=== PATIENT | male | born 1975 ===

== ENCOUNTER 2020-08-17 07:20 | Outpatient (REF) | payer OTHER, SELFPAY ==
[2020-08-17 08:27] LABS: Alanine Aminotransferase 47 U/L (0-40); Albumin Level 4.8 g/dL (3.5-5.0); Alkaline Phosphatase 63 U/L (39-117); Anion Gap 11 (12-20); Aspartate Amino Transferase 42 U/L (5-37); Bilirubin Total 0.6 mg/dL (0.0-1.0); Blood Urea Nitrogen 14 mg/dL (9-16); Calcium 9.2 mg/dL (8.4-10.2); Carbon Dioxide 27 mmol/L (22-29); Chloride 102 mmol/L (96-108); Cholesterol 149 mg/dL; Estimated Glomerular Filt Rate > 60; Glucose Random 95 mg/dL (60-115); HDL Cholesterol 38 mg/dL; LDL Cholesterol Calculated 77 mg/dl; Potassium 4.3 mmol/l (3.3-5.1); Sodium 136 mmol/L (135-145); Total Protein 7.5 g/dL (6.5-8.0); Triglycerides 174 mg/dL
== END 2020-08-17 07:21 | disposition home or self-care (01) ==
LOC: HO.LAB 07:20
PROVIDERS: PCP Internal Medicine; Visit Provider Internal Medicine
DX: Z00.00 Encounter for general adult medical examination without abnormal findings (principal); E78.00 Pure hypercholesterolemia, unspecified; I10 Essential (primary) hypertension
CPT/HCPCS: 80053; 80061

== ENCOUNTER 2021-05-16 07:50 | Outpatient (REF) | payer OTHER, SELFPAY ==
[2021-05-16 08:12] LABS: MANUAL DIFF FLAG NO
[2021-05-16 08:18] LABS: Basophils Percent Auto 0.4 % (0-2); Eosinophils Absolute Auto 0.1 X10*3/uL (0.0-0.4); Eosinophils Percent Auto 1.3 % (0-4); Hematocrit 39.9 % (42-52); Hemoglobin 13.9 g/dl (14.0-18.0); Imm Gran Abs Auto 0.02 X10*3/uL (0.00-0.03); Imm Gran Pct Auto 0.4 % (0.0-0.4); Lymphocytes Absolute Auto 2.2 X10*3/uL (1.2-4.9); Lymphocytes Percent Auto 40.3 % (20-40); Mean Corpuscular HGB Conc 34.8 g/dl (31.0-36.0); Mean Corpuscular Hemoglobin 31.2 pg (27.0-33.0); Mean Corpuscular Volume 89.7 fL (80-98); Mean Platelet Volume 9.7 fL (9.4-12.4); Monocytes Absolute Auto 0.5 X10*3/uL (0.1-1.2); Monocytes Percent Auto 8.3 % (2-11); Neutrophils Absolute Auto 2.7 X10*3/uL (2.0-8.3); Neutrophils Percent Auto 49.3 % (45-73); Platelet Count 247 X10*3/uL (160-400); Red Blood Count 4.45 X10*6/uL (4.60-5.80); Red Cell Distribution Width 12.3 % (11.0-16.0); White Blood Count 5.4 X10*3/uL (4.8-10.8)
[2021-05-16 08:37] LABS: Alanine Aminotransferase 37 U/L (0-40); Albumin Level 4.7 g/dL (3.5-5.0); Alkaline Phosphatase 58 U/L (39-117); Anion Gap 12 (12-20); Aspartate Amino Transferase 32 U/L (5-37); Bilirubin Total 0.6 mg/dL (0.0-1.0); Blood Urea Nitrogen 21 mg/dL (9-16); Calcium 9.6 mg/dL (8.4-10.2); Carbon Dioxide 26 mmol/L (22-29); Chloride 106 mmol/L (96-108); Cholesterol 146 mg/dL; Estimated Glomerular Filt Rate > 60; Glucose Random 104 mg/dL (60-115); HDL Cholesterol 35 mg/dL; LDL Cholesterol Calculated 93 mg/dl; Potassium 3.9 mmol/L (3.3-5.1); Sodium 140 mmol/L (135-145); Total Protein 7.4 g/dL (6.5-8.0); Triglycerides 92 mg/dL
== END 2021-05-16 07:51 | disposition home or self-care (01) ==
LOC: HO.LAB 07:50
PROVIDERS: PCP Internal Medicine; Visit Provider Internal Medicine
DX: E78.2 Mixed hyperlipidemia (principal); I10 Essential (primary) hypertension
CPT/HCPCS: 36415; 80053; 80061; 85025

== ENCOUNTER 2021-12-01 07:07 | Outpatient (REF) | payer OTHER, SELFPAY ==
[2021-12-01 08:26] LABS: Alanine Aminotransferase 41 U/L (0-40); Albumin Level 4.8 g/dL (3.5-5.0); Alkaline Phosphatase 57 U/L (39-117); Anion Gap 10 (12-20); Aspartate Amino Transferase 30 U/L (5-37); Bilirubin Total 0.7 mg/dL (0.0-1.0); Blood Urea Nitrogen 17 mg/dL (9-16); Calcium 10.3 mg/dL (8.4-10.2); Carbon Dioxide 32 mmol/L (22-29); Chloride 104 mmol/L (96-108); Estimated Glomerular Filt Rate > 60; Glucose Random 103 mg/dL (60-115); Potassium 4.6 mmol/L (3.3-5.1); Sodium 141 mmol/L (135-145); Total Protein 7.6 g/dL (6.5-8.0)
== END 2021-12-01 07:08 | disposition home or self-care (01) ==
LOC: HO.LAB 07:07
PROVIDERS: PCP Internal Medicine; Visit Provider Internal Medicine
DX: Z00.00 Encounter for general adult medical examination without abnormal findings (principal); E78.2 Mixed hyperlipidemia; I10 Essential (primary) hypertension
CPT/HCPCS: 36415; 80053

== ENCOUNTER 2022-05-22 07:15 | Outpatient (REF) | payer OTHER, SELFPAY ==
[2022-05-22 07:29] LABS: MANUAL DIFF FLAG NO
[2022-05-22 07:36] LABS: Basophils Percent Auto 0.3 % (0-2); Eosinophils Absolute Auto 0.1 X10*3/uL (0.0-0.4); Eosinophils Percent Auto 1.1 % (0-4); Hematocrit 39.8 % (42.0-52.0); Hemoglobin 13.8 g/dl (14.0-18.0); Imm Gran Abs Auto 0.01 X10*3/uL (0.00-0.03); Imm Gran Pct Auto 0.2 % (0.0-0.4); Lymphocytes Absolute Auto 2.2 X10*3/uL (1.2-4.9); Lymphocytes Percent Auto 32.6 % (20-40); Mean Corpuscular HGB Conc 34.7 g/dl (31.0-36.0); Mean Corpuscular Hemoglobin 31.1 pg (27.0-33.0); Mean Corpuscular Volume 89.6 fL (80.0-98.0); Mean Platelet Volume 9.6 fL (9.4-12.4); Monocytes Absolute Auto 0.6 X10*3/uL (0.1-1.2); Monocytes Percent Auto 8.3 % (2-11); Neutrophils Absolute Auto 3.8 x10*3/uL (2.0-8.3); Neutrophils Percent Auto 57.5 % (45-73); Platelet Count 241 X10*3/uL (160-400); Red Blood Count 4.44 X10*6/uL (4.60-5.80); Red Cell Distribution Width 12.5 % (11.0-16.0); White Blood Count 6.6 X10*3/uL (4.8-10.8)
[2022-05-22 07:56] LABS: Alanine Aminotransferase 27 U/L (0-40); Albumin Level 4.7 g/dL (3.5-5.0); Alkaline Phosphatase 54 U/L (39-117); Anion Gap 14 (12-20); Aspartate Amino Transferase 33 U/L (5-37); Bilirubin Total 0.8 mg/dL (0.0-1.0); Blood Urea Nitrogen 16 mg/dL (9-16); Calcium 9.4 mg/dL (8.4-10.2); Carbon Dioxide 26 mmol/L (22-29); Chloride 105 mmol/L (96-108); Cholesterol 157 mg/dL; Estimated Glomerular Filt Rate > 60; Glucose Random 98 mg/dL (60-115); HDL Cholesterol 40 mg/dL; LDL Cholesterol Calculated 96 mg/dl; Potassium 3.7 mmol/L (3.3-5.1); Sodium 141 mmol/L (135-145); Total Protein 7.4 g/dL (6.5-8.0); Triglycerides 105 mg/dL
[2022-05-22 08:11] LABS: Vitamin D 25-OH Total 44.9 ng/mL (>30)
[2022-05-23 11:52] LABS: Calcium (PTHI) 9.7 mg/dL (8.6-10.3); PTHI 50 pg/mL (16-77)
== END 2022-05-22 07:16 | disposition home or self-care (01) ==
LOC: HO.LAB 07:15
PROVIDERS: PCP Internal Medicine; Visit Provider Internal Medicine
DX: E78.00 Pure hypercholesterolemia, unspecified (principal); E83.52 Hypercalcemia; I10 Essential (primary) hypertension; R74.01 Elevation of levels of liver transaminase levels
CPT/HCPCS: 36415; 80053; 80061; 82306; 83970; 85025

== ENCOUNTER 2022-10-16 09:26 | Day surgery (SDC) | payer OTHER, SELFPAY ==
--- NOTE | 2022-10-12 12:04 | P.CONAN_ITS ---
Documented by User: Zuleika Ward NP 10/12/22 12:05 HPI - Anesthesia Eval Consult details Narrative: 47yo M for Colonoscopy [facility] Past Medical History Medical History (Updated 10/12/22 @ 11:57 by Christina Ivan RN) Elevated cholesterol HTN (hypertension) Nephrolithiasis S/P extracorporeal shock wave therapy Social History Social History Patient Tobacco Use Status: Never used Tobacco Second Hand Smoke Exposure: No Use of substances other than those prescribed or required for medical reasons: No Are you DNR?: No Advance Directives: No Advance Directives Information Provided: Yes Advance Directives on File: No Meds Allergies Allergy/AdvReac Type Severity Reaction Status Date / Time No Known Allergies Allergy Unverified 07/07/20 16:59 [No Known Allergies*] Home Medications Medication Instructions Recorded Confirmed Last Taken Type amlodipine 10 mg tablet 1 tab PO DAILY 10/12/22 10/12/22 10/16/22 History atorvastatin 20 mg tablet 1 tab PO DAILY 10/12/22 10/12/22 Unknown History lisinopril 20 1 tab PO DAILY 10/12/22 10/12/22 Unknown History mg-hydrochlorothiazide 25 mg tablet Exam Exam Date and Time: October 12, 2022 1204 Pertinent Lab Results Pertinent Lab Results: Laboratory Tests 05/22/22 05/22/22 07:27 07:27 WBC 6.6 Hgb 13.8 L Hct 39.8 L Plt Count 241 Sodium 141 Potassium 3.7 Chloride 105 Carbon Dioxide 26 BUN 16 Creatinine 1.08 Assessment and Plan Assessment Anesthesia Assessment: Chart Reviewed Documented by User: Cheikh Benedict MD 10/16/22 10:42 [facility] Past Medical History Medical History (Updated 10/12/22 @ 11:57 by Christina Ivan RN) Elevated cholesterol HTN (hypertension) Nephrolithiasis S/P extracorporeal shock wave therapy Social History Social History Patient Tobacco Use Status: Never used Tobacco Second Hand Smoke Exposure: No Use of substances other than those prescribed or required for medical reasons: No Are you DNR?: No Advance Directives: No Advance Directives Information Provided: Yes Advance Directives on File: No Meds Allergies Allergy/AdvReac Type Severity Reaction Status Date / Time No Known Allergies Allergy Unverified 07/07/20 16:59 [No Known Allergies*] Home Medications Medication Instructions Recorded Confirmed Last Taken Type amlodipine 10 mg tablet 1 tab PO DAILY 10/12/22 10/12/22 10/16/22 History atorvastatin 20 mg tablet 1 tab PO DAILY 10/12/22 10/12/22 Unknown History lisinopril 20 1 tab PO DAILY 10/12/22 10/12/22 Unknown History mg-hydrochlorothiazide 25 mg tablet Exam Airway Mallampati Class: III Loose/Missing/Broken Teeth: Yes Documented by User: Nickolas Posey MD 10/16/22 15:54 [facility] Past Medical History Medical History (Updated 10/12/22 @ 11:57 by Christina Ivan RN) Elevated cholesterol HTN (hypertension) Nephrolithiasis S/P extracorporeal shock wave therapy Family History Family history of problems with anesthesia: No Surgical History History of Problems with Anesthesia: No Social History Social History Patient Tobacco Use Status: Never used Tobacco Second Hand Smoke Exposure: No Use of substances other than those prescribed or required for medical reasons: No Are you DNR?: No Advance Directives: No Advance Directives Information Provided: Yes Advance Directives on File: No Meds Allergies Allergy/AdvReac Type Severity Reaction Status Date / Time No Known Allergies Allergy Unverified 07/07/20 16:59 [No Known Allergies*] Home Medications Medication Instructions Recorded Confirmed Last Taken Type amlodipine 10 mg tablet 1 tab PO DAILY 10/12/22 10/12/22 10/16/22 History atorvastatin 20 mg tablet 1 tab PO DAILY 10/12/22 10/12/22 Unknown History lisinopril 20 1 tab PO DAILY 10/12/22 10/12/22 Unknown History mg-hydrochlorothiazide 25 mg tablet Exam Airway TM Dist: >3cm Neck ROM: Full Heart: S1,S2 Lungs: b/l breath sounds Assessment and Plan Assessment Anesthesia Assessment: Anesthesia Plan Discussed Final Anesthetic Review Family History of Problems with Anesthesia: No History of Problems with Anesthesia: No NPO: Yes ASA Class: II Final Preanesthetic Review: Meds/Allgs Chart Reviewed, Consent Obtained/Reviewed and Anes Risks/Benef Reviewed Patient Risk: Intermediate Procedure Risk: Intermediate Anesthetic Plan Anesthetic Plan: MAC: Disposition: Standard PACU
[2022-10-16 09:58] VITALS: BMI 26.9
[2022-10-16 10:08] VITALS: BP 116/76; PULSE 85; RESP 16; TEMP 36.5; O2SAT 98
[2022-10-16] MEDS: Lactated Ringers 1,000 ML 100 ML IVCONT (10:16)
--- NOTE | 2022-10-16 10:56 | MHC.SHP ---
Pre-Procedural Eval Section A Date of Service: 10/16/22 The patient is an INPATIENT: No Changes since office visit: No Cold of Flu in the past 2 weeks, No New Medical Problems, No Changes in Medication and No Patient answered all questions The History & Physical has been completed within 30 days and I have reviewed it.: Yes Section B Chief Complaint: screening Allergies: Allergies Allergy/AdvReac Type Severity Reaction Status Date / Time No Known Allergies Allergy Unverified 07/07/20 16:59 [No Known Allergies*] Plan I have reviewed the history and physical and performed a pertinent physical examination on my patient. No changes have occurred unless specified. Time Spent With Patient Time: Total time managing care of this patient today ____ minutes.
[2022-10-16 11:24] VITALS: BP 95/53; PULSE 78; RESP 16; TEMP 36.1; O2SAT 97
--- NOTE | 2022-10-16 11:26 | PM.OP ---
Brief Operative Note Date of Service: 10/16/22 Pre-op diagnosis: screening Post-op diagnosis: same Procedure: colonoscopy Surgeon: Eduard Drew Anesthesia: MAC Was an Integrated Logistics Support Manager used for this Procedure?: No Estimated blood loss (mL): 2 Pathology: other Condition: stable Disposition: PACU
[2022-10-16 11:39] VITALS: BP 95/59; PULSE 74; RESP 16; O2SAT 97
[2022-10-16 11:54] VITALS: BP 100/64; PULSE 71; RESP 16; O2SAT 97
[2022-10-16 12:09] VITALS: BP 112/76; PULSE 59; RESP 16; TEMP 36.1; O2SAT 100
--- NOTE | 2022-10-16 20:20 | OP_ITS ---
SURGEON: Eduard Drew MD INDICATIONS: Colon cancer screening. PREOPERATIVE DIAGNOSIS: POSTOPERATIVE DIAGNOSIS: PROCEDURE PERFORMED: Colonoscopy to the terminal ileum with biopsy. ESTIMATED BLOOD LOSS: COMPLICATIONS: ANESTHESIA: Monitored anesthesia care. ASSISTANTS: SPECIMENS: DESCRIPTION OF PROCEDURE: A History and Physical was performed. The procedure was performed on 10/16/2022. The risks and benefits of the procedure were explained to the patient, and informed consent was obtained. The patient was placed in the left lateral decubitus position. A digital rectal exam was performed and was found to be normal. The Olympus pediatric video colonoscope was introduced through the rectum and advanced to the cecum without difficulty. The cecum was identified by transillumination, palpation, and identification of the ileocecal valve. Examination was performed. The scope was removed. He tolerated the procedure well and was returned to the recovery area in stable condition. FINDINGS: The terminal ileum was examined and appeared normal. In the right colon, was a less than 5 mm sessile polyp, which was removed with biopsy forceps. No other polyps were identified. The quality of the prep was good. Retroflexed examination showed moderate-sized internal hemorrhoids. There was mild sigmoid diverticulosis. IMPRESSION: Colon polyp. RECOMMENDATION: Follow up with the biopsy results. MD JAYE Zambrano/GERARDOL / [id number]
== END 2022-10-16 12:33 | disposition home or self-care (01) ==
PROVIDERS: PCP Internal Medicine; Visit Provider Internal Medicine Gastroenterology
PROC: 0DJD8ZZ Inspection of Lower Intestinal Tract, Via Natural or Artificial Opening Endoscopic (ICD-10-PCS; CPT 45378; principal; 2022-10-16 10:50)
DX: Z12.11 Encounter for screening for malignant neoplasm of colon (principal); K63.5 Polyp of colon; K57.30 Diverticulosis of large intestine without perforation or abscess without bleeding; K64.8 Other hemorrhoids; I10 Essential (primary) hypertension; E78.00 Pure hypercholesterolemia, unspecified; Z79.899 Other long term (current) drug therapy; Z87.442 Personal history of urinary calculi
CPT/HCPCS: 45380; 88305

== ENCOUNTER 2023-05-10 07:35 | Outpatient (REF) | payer OTHER, SELFPAY ==
[2023-05-10 09:46] LABS: Alanine Aminotransferase 34 U/L (0-40); Albumin Level 4.9 g/dL (3.5-5.0); Alkaline Phosphatase 56 U/L (39-117); Anion Gap 14 (12-20); Aspartate Amino Transferase 33 U/L (5-37); Bilirubin Total 1.1 mg/dL (0.0-1.0); Blood Urea Nitrogen 21 mg/dL (9-16); Calcium 9.9 mg/dL (8.4-10.2); Carbon Dioxide 23 mmol/L (22-29); Chloride 104 mmol/L (96-108); Cholesterol 171 mg/dL; Estimated Glomerular Filt Rate > 60; Glucose Random 105 mg/dL (60-115); HDL Cholesterol 43 mg/dL; LDL Cholesterol Calculated 112 mg/dl; Potassium 3.6 mmol/L (3.3-5.1); Sodium 137 mmol/L (135-145); Triglycerides 83 mg/dL
== END 2023-05-10 07:36 | disposition home or self-care (01) ==
LOC: HO.LAB 07:35
PROVIDERS: PCP Internal Medicine; Visit Provider Internal Medicine
DX: E78.00 Pure hypercholesterolemia, unspecified (principal); I10 Essential (primary) hypertension; N52.9 Male erectile dysfunction, unspecified
CPT/HCPCS: 36415; 80053; 80061

== ENCOUNTER 2023-11-20 07:02 | Outpatient (REF) | payer OTHER, SELFPAY ==
[2023-11-20 07:56] LABS: Alanine Aminotransferase 44 U/L (0-40); Albumin Level 4.6 g/dL (3.5-5.0); Alkaline Phosphatase 61 U/L (39-117); Anion Gap 14 (12-20); Aspartate Amino Transferase 32 U/L (5-37); Bilirubin Total 0.7 mg/dL (0.0-1.0); Blood Urea Nitrogen 18 mg/dL (9-16); Calcium 9.5 mg/dL (8.4-10.2); Carbon Dioxide 27 mmol/L (22-29); Chloride 104 mmol/L (96-108); Cholesterol 141 mg/dL (<200); Estimated Glomerular Filt Rate > 60; Glucose Random 101 mg/dL (60-115); HDL Cholesterol 41 mg/dL (>40); LDL Cholesterol Calculated 88 mg/dL (<100); Potassium 4.1 mmol/L (3.3-5.1); Sodium 141 mmol/L (135-145); Total Protein 7.7 g/dL (6.5-8.0); Triglycerides 62 mg/dL (<150)
== END 2023-11-20 07:03 | disposition home or self-care (01) ==
LOC: HO.LAB 07:02
PROVIDERS: PCP Internal Medicine; Visit Provider Internal Medicine
DX: Z00.00 Encounter for general adult medical examination without abnormal findings (principal); E78.00 Pure hypercholesterolemia, unspecified; I10 Essential (primary) hypertension; N52.9 Male erectile dysfunction, unspecified
CPT/HCPCS: 36415; 80053; 80061

== ENCOUNTER 2024-05-15 06:45 | Outpatient (REF) | payer OTHER, SELFPAY ==
[2024-05-15 06:56] LABS: MANUAL DIFF FLAG NO
[2024-05-15 07:26] LABS: Basophils Percent Auto 0.6 % (0-2); Eosinophils Absolute Auto 0.1 X10*3/uL (0.0-0.4); Eosinophils Percent Auto 2.3 % (0-4); Hematocrit 41.6 % (42.0-52.0); Hemoglobin 14.2 g/dl (14.0-18.0); Imm Gran Abs Auto 0.02 X10*3/uL (0.00-0.03); Imm Gran Pct Auto 0.4 % (0.0-0.4); Lymphocytes Absolute Auto 1.9 X10*3/uL (1.2-4.9); Lymphocytes Percent Auto 37.1 % (20-40); Mean Corpuscular HGB Conc 34.1 g/dl (31.0-36.0); Mean Corpuscular Hemoglobin 30.7 pg (27.0-33.0); Mean Corpuscular Volume 89.8 fL (80.0-98.0); Mean Platelet Volume 9.8 fL (9.4-12.4); Monocytes Absolute Auto 0.5 X10*3/uL (0.1-1.2); Monocytes Percent Auto 9.6 % (2-11); Neutrophils Absolute Auto 2.6 x10*3/uL (2.0-8.3); Platelet Count 229 X10*3/uL (160-400); Red Blood Count 4.63 X10*6/uL (4.60-5.80); Red Cell Distribution Width 12.6 % (11.0-16.0); White Blood Count 5.1 X10*3/uL (4.8-10.8)
[2024-05-15 07:59] LABS: Alanine Aminotransferase 33 U/L (0-40); Albumin Level 4.7 g/dL (3.5-5.0); Alkaline Phosphatase 59 U/L (39-117); Anion Gap 12 (12-20); Aspartate Amino Transferase 30 U/L (5-37); Bilirubin Total 0.6 mg/dL (0.0-1.0); Blood Urea Nitrogen 18 mg/dL (9-16); Calcium 9.6 mg/dL (8.4-10.2); Carbon Dioxide 27 mmol/L (22-29); Chloride 106 mmol/L (96-108); Cholesterol 156 mg/dL (<200); Estimated Glomerular Filt Rate > 60; Glucose Random 98 mg/dL (60-115); HDL Cholesterol 41 mg/dL (>40); LDL Cholesterol Calculated 97 mg/dL (<100); Potassium 3.8 mmol/L (3.3-5.1); Sodium 141 mmol/L (135-145); Total Protein 7.5 g/dL (6.5-8.0); Triglycerides 90 mg/dL (<150)
[2024-05-15 08:19] LABS: Prostate Specific Antigen Scr 4.66 ng/mL (<0.05-4.0)
== END 2024-05-15 06:46 | disposition home or self-care (01) ==
LOC: HO.LAB 06:45
PROVIDERS: PCP Internal Medicine; Visit Provider Internal Medicine
DX: E78.00 Pure hypercholesterolemia, unspecified (principal); I10 Essential (primary) hypertension; N40.0 Benign prostatic hyperplasia without lower urinary tract symptoms; R74.01 Elevation of levels of liver transaminase levels; Z68.28 Body mass index [BMI] 28.0-28.9, adult; Z12.5 Encounter for screening for malignant neoplasm of prostate
CPT/HCPCS: 36415; 80053; 80061; 84153; 85025

== ENCOUNTER 2024-08-18 14:20 | Outpatient (AMB) | payer OTHER, SELFPAY ==
--- NOTE | 2024-08-18 14:23 | A.OFFVIS_ITS ---
Intake Visit Reasons: elevated PSA Intake Note: New patient is present for Elevated PSA Referred by Dr. Allen Recent PSA: 05/15/2024 PSA: 4.66 Antibiotic Allergy: None Blood Thinner: None Denies Family HX of Prostate/Bladder Cancer Accompanied by: Self / Same As Patient Allergies No Known Allergies [No Known Allergies*] Allergy (Unverified 07/07/20 16:59) HPI Comments Details: Erasto is a pleasant male. He is a patient of Dr. Allen. He is seen for the following urologic conditions - elevated PSA Elevated PSA PSA - 05/13 4.6 No family history of prostate cancer Repeat PSA Bladder ultrasound 4 week follow-up tele May benefit from MRI if persistent high PFSH Medical History (Updated 08/18/24 @ 14:37 by Jairo Parham MD) S/P extracorporeal shock wave therapy Nephrolithiasis Elevated cholesterol HTN (hypertension) Social History Patient Tobacco Use Status: Never used Tobacco Second Hand Smoke Exposure: No Review of Systems Const Denies chills and Denies fever(s) Card Reports no additional complaints and Denies syncope Resp Denies cough GI Denies abdominal pain and Denies heartburn Reports as per HPI and Denies change in libido Neuro Denies syncope Psych Denies change in libido Endo Denies change in libido Physical Exam Const General: cooperative, healthy appearing, comfortable and no acute distress Orientation/consciousness: patient oriented x3 HEENT Face and sinus: Yes normal facial exam Mouth: moist mucous membranes Neck Neck: Yes normal visual inspection, Yes full ROM and Yes trachea midline Chest Chest palpation & inspection: normal inspection of the chest Resp Effort & Inspection: normal respiratory effort, able to speak in complete sentences and no respiratory distress GI Inspection: Yes normal to inspection Back/Spine/Pelvis Cervical Spine: normal cervical lordosis Thoracic/Lumbar Spine: thoracic and lumbar spine normal to inspection Skin General skin exam: no rashes or lesions noted Neuro General: patient oriented x3, gait normal, tone normal and moves all extremities Extrem General: Yes normal to inspection and Yes capillary refill normal Assessment & Plan Assessment & Plan (1) Elevated PSA: Code(s): R97.20 - Elevated prostate specific antigen [PSA] Category: Medical Plan Four week follow-up tele Orders: Orders US bladder Today R39.12 - Poor urinary stream PSA,Total (Free>4and<10) Today E11.69 - Type 2 diabetes mellitus with other specified complication, N52.1 - Erectile dysfunction due to diseases classified elsewhere Patient Instructions: Imaging studies, laboratory and physical exam results were discussed and revie wed in detail. No major barriers to patient understanding were identified. An opportunity to ask questions regarding the treatment plan was provided. All questions were answered. The patient expressed understanding and agreement with the above treatment plan. The patient is aware they should contact our office by phone for worsening of their current condition or the appearance of new urologic symptoms. Compliance is encouraged with any medications and followup testing that is ordered. It is a privilege to participate in the urologic care of your patient. If you have any questions or concerns regarding treatment for the above conditions, or other urologic issues, please do not hesitate to contact me. The office telephone contact is [phone]. This note is constructed using voice recognition software. While every effort has been made to ensure accuracy paving stone installer errors may have been included. Yours sincerely, Dr Jairo Parham MD, [facility] - Urology Providers of Expert, Compassionate Care for the Genitourinary System Coding Level of Care Code New Pt Level 3 (18504) Diagnoses Elevated PSA R97.20
== END 2024-08-18 14:48 | disposition home or self-care (01) ==
LOC: HO.HUSH 14:21
PROVIDERS: PCP Internal Medicine; Visit Provider Urology
DX: R97.20 Elevated prostate specific antigen [PSA] (principal)
CPT/HCPCS: 99203

== ENCOUNTER → 2024-08-18 14:20 | Outpatient (BNVA) | payer OTHER, SELFPAY | PROVIDERS: PCP Internal Medicine; Visit Provider Urology ==

== ENCOUNTER 2024-08-24 15:47 | Outpatient (REF) | payer OTHER, SELFPAY ==
--- NOTE | ~2024-08-24 | US_ITS ---
EXAMINATION: US PELVIS LIMITED (BLADDER) CLINICAL INFORMATION: Poor urinary stream. COMPARISON: None available. TECHNIQUE: Real-time imaging of the bladder. FINDINGS: BLADDER: Well distended and normal. Bilateral ureteral jets are demonstrated. Prevoid bladder volume is 293 mL. Postvoid bladder volume is 12 mL. PROSTATE: Prostate is only mildly enlarged measuring 3.7 x 3.6 x 4.5 cm for a volume of 32 mL. US/US bladder IMPRESSION: 1. Normal-appearing bladder. 2. Mild BPH with 32 mL prostate and only 12 mL PVR. Electronically signed by: Bradley Hale MD 09/21/2024 08:44 PM [facility] [place]
== END 2024-08-24 15:48 | disposition home or self-care (01) ==
LOC: HO.US 15:47
PROVIDERS: PCP Internal Medicine; Visit Provider Urology
DX: R39.12 Poor urinary stream (principal)
CPT/HCPCS: 76857

== ENCOUNTER 2024-09-15 15:45 | Outpatient (AMB) | payer OTHER, SELFPAY ==
--- NOTE | 2024-09-15 15:46 | A.OFFVIS_ITS ---
Intake Visit Reasons: 1M Bladder US/PSA(Needs PSA) Intake Note: Patient is present for 1M BLADDER US/PSA Urology Medication:NONE Antibiotic Allergy:NONE Blood Thinner:NONE Hogshead Head Matcher Required: No Allergies No Known Allergies [No Known Allergies*] Allergy (Verified 09/15/24 15:46) HPI Comments Details: Erasto is a pleasant male. He is a patient of Dr. Allen. He is see n for the following urologic conditions - elevated PSA Telemedicine Evaluation 15 min Consultation Doximity Enmanuel Video Did not get PSA repeat Repeat PSA Elevated PSA PSA - 05/13 4.6 No family history of prostate cancer Bladder ultrasound 07/14 32 g prostate Repeat PSA [facility] Medical History (Updated 08/18/24 @ 14:37 by Jairo Parham MD) S/P extracorporeal shock wave therapy Nephrolithiasis Elevated cholesterol HTN (hypertension) Social History Patient Tobacco Use Status: Never used Tobacco Second Hand Smoke Exposure: No Review of Systems Const All systems reviewed & are unremarkable except as noted in HPI and below Reports no additional complaints Resp Reports no additional complaints GI Reports no additional complaints Reports as per HPI Musc Reports no additional complaints Physical Exam Telemedicine evaluation Appropriate responses Regular breathing rate and rhythm HEENT Head: Yes normal to inspection Ears: hearing grossly normal bilaterally Eyes General: appearance normal, both eyes and all related structures Neck Neck: Yes normal visual inspection Chest Chest palpation & inspection: normal inspection of the chest Resp Effort & Inspection: normal respiratory effort and able to speak in complete sentences Telehealth Telehealth Telehealth Platform: Kopo Kopo Location of provider rendering services: practice address Location of patient: address on file Patient Identification confirmed using: Name, : Yes Telehealth method: video Patient verbally consented to treatment: Yes Patient verbally consented to billing insurance company: Yes Patient informed of any privacy concerns related to visit: Yes Minutes spent on Phone/Video with Pt.: 15 Assessment & Plan Assessment & Plan (1) Elevated PSA: Code(s): R97.20 - Elevated prostate specific antigen [PSA] Category: Medical Plan 2 month follow-up PSA Orders: Orders PSA,Total (Free>4and<10) 2 Months R97.20 - Elevated prostate specific antigen [PSA] Patient Instructions: Imaging studies, laboratory and physical exam results were discussed and reviewed in detail. No major barriers to patient understanding were identified. An opportunity to ask questions regarding the treatment plan was provided. All questions were answered. The patient expressed understanding and agreement with the above treatment plan. The patient is aware they should contact our office by phone for worsening of their current condition or the appearance of new urologic symptoms. Compliance is encouraged with any medications and followup testing that is ordered. It is a privilege to participate in the urologic care of your patient. If you have any questions or concerns regarding treatment for the above conditions, or other urologic issues, please do not hesitate to contact me. The office telephone contact is [phone]. This note is constructed using voice recognition software. While every effort has been made to ensure accuracy button cutting machine operator errors may have been included. Yours sincerely, Dr Jairo Parham MD, [facility] - Urology Providers of Expert, Compassionate Care for the Genitourinary System Coding Level of Care Code Tele Est Pt Level 3 (63880) Diagnoses Elevated PSA R97.20
== END 2024-09-15 16:14 | disposition home or self-care (01) ==
LOC: HO.HUSH 15:45
PROVIDERS: PCP Internal Medicine; Visit Provider Urology
DX: R97.20 Elevated prostate specific antigen [PSA] (principal)
CPT/HCPCS: 99213

== ENCOUNTER 2024-11-12 07:03 | Outpatient (REF) | payer OTHER, SELFPAY ==
[2024-11-12 08:56] LABS: PSA,Total (Free>4and<10) 4.64 ng/mL (0.00-4.00)
[2024-11-13 13:04] LABS: Free Prostate Spec Ag 0.7 ng/mL; Percent Free Prostate Spec Ag 15 % (calc) (>25); Prostate Specific Ag Total 4.6 ng/mL (< OR = 4.0)
== END 2024-11-12 07:04 | disposition home or self-care (01) ==
LOC: HO.LAB 07:03
PROVIDERS: PCP Internal Medicine; Visit Provider Urology
DX: R97.20 Elevated prostate specific antigen [PSA] (principal); Z12.5 Encounter for screening for malignant neoplasm of prostate
CPT/HCPCS: 36415; 84153; 84154

== ENCOUNTER 2024-11-19 11:03 | Outpatient (AMB) | payer OTHER, SELFPAY ==
--- NOTE | 2024-11-19 11:13 | MHC.OFFVIS ---
Intake Visit Reasons: 2M PSA(set) Intake Note: Patient is present for 2M PSA Urology Medication:NONE Antibiotic Allergy:NONE Blood Thinner:NONE Marketing Co Op Required: No Allergies No Known Allergies [No Known Allergies*] Allergy (Verified 11/19/24 11:14) HPI Comments Details: Erasto is a pleasant male. He is a patient of Dr. Allen. He is seen for the following urologic conditions - elevated PSA PSA consistent Recommend repeat in 6 months with MRI Elevated PSA PSA - 05/13 4.6, 11/14 4.6 15% No family history of prostate cancer Bladder ultrasound 07/14 32 g prostate Repeat PSA [facility] Medical History (Updated 11/19/24 @ 11:56 by Jairo Parham MD) S/P extracorporeal shock wave therapy Nephrolithiasis Elevated cholesterol HTN (hypertension) Social History Patient Tobacco Use Status: Never used Tobacco Second Hand Smoke Exposure: No Review of Systems Const Denies chills and Denies fever(s) Card Reports no additional complaints and Denies syncope Resp Denies cough GI Denies abdominal pain and Denies heartburn Reports as per HPI and Denies change in libido Neuro Denies syncope Psych Denies change in libido Endo Denies change in libido Physical Exam Const General: cooperative, healthy appearing, comfortable and no acute distress Orientation/consciousness: patient oriented x3 HEENT Face and sinus: Yes normal facial exam Mouth: moist mucous membranes Neck Neck: Yes normal visual inspection, Yes full ROM and Yes trachea midline Chest Chest palpation & inspection: normal inspection of the chest Resp Effort & Inspection: normal respiratory effort, able to speak in complete sentences and no respiratory distress GI Inspection: Yes normal to inspection Back/Spine/Pelvis Cervical Spine: normal cervical lordosis Thoracic/Lumbar Spine: thoracic and lumbar spine normal to inspection Skin General skin exam: no rashes or lesions noted Neuro General: patient oriented x3, gait normal, tone normal and moves all extremities Extrem General: Yes normal to inspection and Yes capillary refill normal Assessment & Plan Assessment & Plan (1) Elevated PSA: Code(s): R97.20 - Elevated prostate specific antigen [PSA] Category: Medical (2) Nephrolithiasis: Code(s): N20.0 - Calculus of kidney Category: Medical Plan Six-month follow-up PSA and prostate MRI Orders: Orders MR Prostate wo/w con 6 Months R97.20 - Elevated prostate specific antigen [PSA] PSA,Total (Free>4and<10) 6 Months R97.20 - Elevated prostate specific antigen [PSA] Patient Instructions: Imaging studies, laboratory and physical exam results were discussed and reviewed in detail. No major barriers to patient understanding were identified. An opportunity to ask questions regarding the treatment plan was provided. All questions were answered. The patient expressed understanding and agreement with the above treatment plan. The patient is aware they should contact our office by phone for worsening of their current condition or the appearance of new urologic symptoms. Compliance is encouraged with any medications and followup testing that is ordered. It is a privilege to participate in the urologic care of your patient. If you have any questions or concerns regarding treatment for the above conditions, or other urologic issues, please do not hesitate to contact me. The office telephone contact is [phone]. This note is constructed using voice recognition software. While every effort has been made to ensure accuracy oracle drm consultant errors may have been included. Yours sincerely, Dr Jairo Parham MD, [facility] - Urology Providers of Expert, Compassionate Care for the Genitourinary System Coding Level of Care Code Est Pt Level 3 (71292) Diagnoses Elevated PSA R97.20 Nephrolithiasis N20.0
--- OUTSIDE RECORDS SUMMARY | 2024-11-19 14:58 | XMS_ITS | Clinical Summary ---
Author Organization [facility] Address [address] [place] [address] Care Team Providers Care General Dentist Name Role Phone Unavailable Primary Care Provider Unavailabl e Source Comments PLEASE NOTE, if this patient is a minor, it may be UNLAWFUL to discuss sensitive information that is contained in these records (such as FAMILY PLANNING, MENTAL HEALTH or SUBSTANCE ABUSE) with the minor patient's parent or other person without the patient's specific authorization.[facility] Allergies No known active allergies Medications atorvastatin (LIPITOR) 20 mg tablet Take 20 mg by mouth once daily Active lisinopriL-hydro chlorothiazide 20-25 mg per tablet Take 1 Tablet by mouth once daily Active amlodipine-atorv astatin (CADUET) 10-10 mg per tablet Take 1 Tablet by mouth once daily Active Active Problems No known active problems Encounters Date Type Department Care Team Description 10/27/2024 4:20 PM EST Office Visit [facility] [id number] [place] [phone] Katie Talbot Encounter for dental examination and cleaning with abnormal findings (Primary Dx) 10/27/2024 Travel 09/22/2024 4:00 PM EST Office Visit [facility] [address] [place] [phone] Niki Topete DDS Caries of enamel (incipient) (Primary Dx) 09/22/2024 Travel from Last 3 Months Social History Tobacco Use Types Packs/Day Years Used Date Smoking Tobacco: Never Passive Smoke Exposure: Never Smokeless Tobacco: Never Tobacco Cessation:Counseling Given: Not Answered Social Connections Answer Date Recorded Connectedness 0 07/03/2024 Financial Resource Strain Answer Date R ecorded Financial Resource Strain 0 2021 Stress Answer Date Recorded Stress 0 05/10/2022 Physical Activity Answer Date Recorded Physical Activity 0 05/10/2022 Food Insecurity Answer Date Recorded Food 0 07/16/2024 Transportation Needs Answer Date Record ed Transportation 0 05/10/2022 Housing Stability Answer Date Recorded Housing 0 05/10/2022 Safety and Environment Answer Date Ronal rded Safety 0 05/10/2022 Utilities Answer Date Recorded Utilities 0 05/10/2022 Employment Answer Date Recorded Stress 0 07/03/2024 Sex and Gender Information Value Date Recorded Sex Assigned at Not on file Legal Sex Male 8:19 AM PST Gender Identity Not on file Sexual Orientation Not on file COVID-19 Exposure Response Date Recorded In the last 10 days, have yo u been in contact with someone who was confirmed or suspected to have Coronavirus/COVID-19? No / Unsure 10/27/2024 4:13 PM EST Last Filed Vital Signs Vital Sign Reading Time Taken Comments Blood Pressure 123/75 11/02/2024 3:14 PM EST Pulse 65 11/02/2024 3:14 PM EST Temperature - - Respiratory Rate - - Oxygen Saturation - - Inhaled Oxygen Concentration - - Weight - - Height - - Body Mass Index - - Plan of Treatment Upcoming Encounters Date Type Department Care Team (Late st Contact Info) Description 04/27/2025 4:20 PM EDT Office Visit [facility] [address] [place] [phone] Katie Talbto [address] [place] [phone] Health Maintenance Due Date Last Done Comments Diabetes Screening 1974 Hepatitis C Screening 1974 Lipid Screening 1974 HIV Screening 1989 Imm-DTaP/Tdap/Td (1 - Tdap) 1993 Imm-Hepatitis B (1 of 3 - 19 + 3-dose series) 1993 CT Colonography 2019 Colonoscopy 2019 Colorectal Cancer Screening 2019 FIT/gFOBT 2019 Fecal DNA 2019 Flexible Sigmoidoscopy 2019 [id number] ( - season) 2024 Imm-Influenza (#1) 2024 Imm-Zoster, Recombinant (1 of 2) 2024 Alcohol and Drug Screen 10/21/2024 Depression Annual Screen 10/21/2024 Dental BW 09/24/2025 09/22/2024, 05/0 12/2023, 05/10/2022 Dental Examination 09/24/2025 09/22/2024, 0 02/21/2024, 05/10/2022 Dental Perio Charting 09/24/2025 09/22/2024, 024 Dental Prophy 10/29/2025 10/27/2024, 05/0 12/2023, 05/10/2022 Hypertension Screening (#1) 11/02/2025 Tobacco Screening 11/02/2025 11/02/2024 Dental FMX/Pano 05/12/2027 05/10/2022 Procedures Procedure Name Priority Date/Time Associated Diagnosis Comments DENTAL CASE MANAGEMENT - CARE COORDINATION Routine 10/27/2024 4:20 PM EST Encounter for dental examination and cleaning with abnormal findings Full ORAL HYGIENE INSTRUCTIONS Routine 10/27/2024 4:20 PM EST Encounter for dental examination and cleaning with abnormal findings Full NUTRITIONAL COUNSELING CONTROL OF DENTAL DISEASE Routine 10/27/2024 4:20 PM EST Encounter for dental examination and cleaning with abnormal findings Full PROPHYLAXIS - ADULT Routine 025 4:20 PM EST Encounter for dental examination and cleaning with abnormal findings CARIES RISK ASSESSMENT & DOC FINDING HIGH RISK Routine 09/22/2024 4:00 PM EST Caries of enamel (incipient) NUTRITIONAL COUNSELING CONTROL OF DENTAL DISEASE Routine 09/22/2024 4:00 PM EST Caries of enamel (incipient) ORAL HYGIENE INSTRUCTIONS Routine 09/22/2024 4:00 PM EST Caries of enamel (incipient) INTRAORAL - PERIAPICAL EACH ADD RADIOGRAPH IMAGE Routine 09/22/2024 4:00 PM EST Caries of enamel (incipient) INTRAORAL - PERIAPICAL EACH ADD RADIOGRAPH IMAGE Routine 09/22/2024 4:00 PM EST Caries of enamel (incipient) BITEWINGS - FOUR RADIOGRAPHIC IMAGES Routine 09/22/2024 4:00 PM EST Caries of enamel (incipient) PERIODIC ORAL EVALUATION ESTABLISHED PATIENT Routine 09/22/2024 4:00 PM EST Caries of enamel (incipient) COMP PERIODONTAL EVALUATION - NEW/EST PATIENT Routine 02/21/2024 4:20 PM EDT Caries of enamel (incipient) Defective dental episcopalian Full INTRAORAL - COMP SERIES OF RADIOGRAPHIC IMAGES Routine 05/10/2022 9:00 AM EDT Encounter for preoperative dental examination from Last 3 Months or Most Recently Relevant to Health Maintenance Insurance [facility] [place]RELL[place] [phone]
--- OUTSIDE RECORDS SUMMARY | 2024-11-19 14:58 | XMS_ITS | Encounter Summary ---
Author Organization [facility] Address [address] [place] [address] Care Team Providers Care Fingernail Former Name Role Phone Unavailable Primary Care Provider Unavailabl e Reason for Visit * Reason Comments Dental Hygiene/ Preventive PROPHY Encounter Details Date Type Department Care Team (Late st Contact Info) Description 10/27/2024 4:20 PM EST Office Visit [facility] [address] [place] [phone] Katie Talbot [address] [place], [place] [phone] Encounter for dental examination and cleaning with abnormal findings (Primary Dx) Social History Tobacco Use Types Packs/Day Years Used Date Smoking Tobacco: Never Passive Smoke Exposure: Never Smokeless Tobacco: Never Social Connections Answer Date Recorded Connectedness 0 [...] No / Unsure 10/27/2024 4:13 PM EST documented as of this encounter Last Filed Vital Signs Vital Sign Reading Time Taken Comments Blood Pressure 123/75 11/02/2024 3:14 PM EST Pulse 65 11/02/2024 3:14 PM EST Temperature - - Respiratory Rate - - Oxygen Saturation - - Inhaled Oxygen Concentration - - Weight - - Height - - Body Mass Index - - documented in this encounter Progress Notes * Katie Talbot - 11/02/2024 3:15 PM EST Prophy Subjective Erasto Madrid, 49 year old male, presents alone for prophy. Privacy Attorney: No Chief Complaint Patient presents with Dental Hygiene/ Preventive PROPHY Objective RMHx: Yes Vitals: Vitals: 11/02/24 1514 BP: 123/75 Pulse: 65 BP Site: Left Arm BP Position: Sitting BP Cuff Size: Regular Adult Pain Score: 0 - No pain Assessment EOE/IOE/Oral Cancer Screen: WNL Oral Hygiene: Fair Home Care: Toothbrush 1 x per day, Floss 0 x per day Fluoride exposure: toothpaste Plaque: Generalized Slight Calculus: Generalized Moderate Gingival Description: Erythematous Inflammation: Generalized Moderate Recession: Generalized Moderate Bone Loss: Generalized Moderate Staining: None PSR: Yes Periodontal Screening Full Perio Charting completed: Not applicable Dx: Z01.21 Encounter for dental examination and cleaning with abnormal findings (primary encounter diagnosis) DH Dx Details: PROPHY Plan ROSALBA Informed Consent/PARQ (Procedure, Alternatives, Risks, Questions): Patient confirms informed consent using PARQ. Dental procedures in this visit D1110 - PROPHYLAXIS - ADULT Full (Completed) Service provider: Katie Talbot Billalberto provider: Carly Herrera DDS D1310 - NUTRITIONAL COUNSELING CONTROL OF DENTAL DISEASE Full (Completed) Service provider: Katie Talbot Billalberto provider: Carly Herrera DDS D1330 - ORAL HYGIENE INSTRUCTIONS Full (Completed) Service provider: Katie Talbot Billalberto provider: Carly Herrera DDS [id number] - DENTAL CASE MANAGEMENT - CARE COORDINATION (Completed) Service provider: Katie Talbot Billalberto provider: ELSI Oakley completed with ultrasonic sap business intelligence consultant OHI & Nutrition counseling provided, discussed: Gingivitis Post-Op Information Given: verbal Referral: No orders of the following type(s) were placed in this encounter: Referral. Rx: No orders of the defined types were placed in this encounter. Behavior: Excellent NV: ROSALBA documented in this encounter Miscellaneous Notes * Patient Instructions - Katie Talbot - 10/27/2024 4:51 PM EST If you are not able to keep your appointment please call 24-48 hours before your appointment to cancel or reschedule. documented in this encounter Plan of Treatment Upcoming Encounters Date Type Department Care Team (Late st Contact Info) Description 04/27/2025 4:20 PM EDT Office Visit [facility] [address] [place] [phone] Katie Talbot [address] [place] [phone] documented as of this encounter Procedures Procedure Name Priority Date/Time Associated Diagnosis [...] dental examination and cleaning with abnormal findings documented in this encounter Visit Diagnoses Diagnosis Encounter for dental examination and cleaning with abnormal findings- Primary documented in this encounter
--- OUTSIDE RECORDS SUMMARY | 2024-11-19 14:58 | XMS_ITS | Encounter Summary ---
Author Organization [facility] Address [address] [place] [address] Care Team Providers Care Annealer Helper Name Role Phone Unavailable Primary Care Provider Unavailabl e Encounter Details Date Type Department Care Team (Latest Contact Info) Description 10/27/2024 Travel Social History Tobacco Use Types Packs/Day Years [...] PM EST documented as of this encounter Plan of Treatment Upcoming Encounters Date Type Department Care Team (Late st Contact Info) Description 04/27/2025 4:20 PM EDT Office Visit [facility] [address] [facility] [address] [place] [phone] Katie Talbot [address] [place] [address] documented as of this encounter Visit Diagnoses Not on filedocumented in this encounter
== END 2024-11-19 11:57 | disposition home or self-care (01) ==
PROVIDERS: PCP Internal Medicine; Visit Provider Urology
DX: R97.20 Elevated prostate specific antigen [PSA] (principal); N20.0 Calculus of kidney
CPT/HCPCS: 99213

== ENCOUNTER → 2024-11-19 11:03 | Outpatient (BNVA) | payer OTHER, SELFPAY | PROVIDERS: PCP Internal Medicine; Visit Provider Urology ==

== ENCOUNTER 2024-12-03 07:11 | Outpatient (REF) | payer OTHER, SELFPAY ==
[2024-12-03 08:19] LABS: Alanine Aminotransferase 50 U/L (0-40); Albumin Level 4.6 g/dL (3.5-5.0); Alkaline Phosphatase 64 U/L (39-117); Anion Gap 12 (12-20); Aspartate Amino Transferase 40 U/L (5-37); Bilirubin Total 0.6 mg/dL (0.0-1.0); Blood Urea Nitrogen 16 mg/dL (9-16); Calcium 9.7 mg/dL (8.4-10.2); Carbon Dioxide 26 mmol/L (22-29); Chloride 107 mmol/L (96-108); Estimated Glomerular Filt Rate > 60; Glucose Random 100 mg/dL (60-115); Sodium 141 mmol/L (135-145); Total Protein 7.7 g/dL (6.5-8.0)
[2024-12-03 08:42] LABS: Prostate Specific Antigen 4.66 ng/mL (<0.05-4.0)
== END 2024-12-03 07:12 | disposition home or self-care (01) ==
LOC: HO.LAB 07:11
PROVIDERS: PCP Internal Medicine; Visit Provider Internal Medicine
DX: Z00.00 Encounter for general adult medical examination without abnormal findings (principal); E78.00 Pure hypercholesterolemia, unspecified; I10 Essential (primary) hypertension; R97.20 Elevated prostate specific antigen [PSA]; Z12.5 Encounter for screening for malignant neoplasm of prostate
CPT/HCPCS: 36415; 80053; 84153

== ENCOUNTER 2025-04-13 06:57 | Outpatient (REF) | payer OTHER, SELFPAY ==
--- OUTSIDE RECORDS SUMMARY | 2025-04-13 07:00 | XMS_ITS | Clinical Summary ---
Author Organization [facility] Address [address] [place] [address] Care Team Providers Care Non Cdl Driver Name Role Phone Unavailable Primary Care Provider [...] Active Active Problems No known active problems Social History Tobacco Use Types Packs/Day Years [...] on file Sexual Orientation Not on file Last Filed Vital Signs Vital Sign Reading Time Taken Comments Blood Pressure 123/75 11/02/2024 3:14 PM EST Pulse 65 11/02/2024 3:14 PM EST Temperature - - Respiratory Rate - - Oxygen Saturation - - Inhaled Oxygen Concentration - - Weight - - Height - - Body Mass Index - - Plan of Treatment Upcoming Encounters Date Type Department Care Team ([facility] st Contact Info) Description 04/27/2025 4:20 PM EDT Office Visit [facility] [address] [place] [phone] Nereyda Talbotfer [address] [place] [address] Health Maintenance Due Date Last Done Comments Anxiety Screening 1974 Diabetes Screening 1974 Hepatitis C Screening 1974 Lipid Screening 1974 HIV Screening 1989 Imm-DTaP/Tdap/Td (1 - Tdap) 1993 Imm-Hepatitis B (1 of 3 - 19 + 3-dose series) 1993 CT Colonography 2019 Colonoscopy 2019 Colorectal Cancer Screening 2019 FIT/gFOBT 2019 Fecal DNA 2019 Flexible Sigmoidoscopy 2019 [id number] ( season) 2024 Imm-Zoster, Recombinant (1 of 2) 2024 Alcohol and Drug Screen 10/21/2024 Depression Annual Screen 10/21/2024 Imm-Influenza (Season Ended) 2025 Dental BW 09/24/2025 09/22/2024, 05/0 12/2023, 05/10/2022 Dental Examination 09/24/2025 09/22/2024, 0 02/21/2024, 05/10/2022 Dental Perio Charting 09/24/2025 09/22/2024, 024 Dental Prophy 10/29/2025 10/27/2024, 05/0 12/2023, 05/10/2022 Hypertension Screening (#1) 11/02/2025 Tobacco Screening 11/02/2025 11/02/2024 Dental FMX/Pano 05/12/2027 05/10/2022 Procedures Procedure Name Priority Date/Time Associated Diagnosis Comments Full PROPHYLAXIS - ADULT Routine 025 4:20 PM EST Encounter for dental examination and cleaning with abnormal findings BITEWINGS - FOUR RADIOGRAPHIC IMAGES Routine 09/22/2024 4:00 PM EST Caries of enamel (incipient) PERIODIC ORAL EVALUATION ESTABLISHED PATIENT Routine 09/22/2024 4:00 PM EST Caries of enamel (incipient) COMP PERIODONTAL EVALUATION - NEW/EST PATIENT Routine 02/21/2024 4:20 PM EDT Caries of enamel (incipient) Defective dental christian Full INTRAORAL - COMP SERIES OF RADIOGRAPHIC IMAGES Routine 05/10/2022 9:00 AM EDT Encounter for preoperative dental examination from Last 3 Months or Most Recently Relevant to Health Maintenance Insurance [facility] NITH[place] ORELL[place] [phone]
[2025-04-13 08:14] LABS: PSA,Total (Free>4and<10) 9.11 ng/mL (0.00-4.00)
[2025-04-14 12:18] LABS: Free Prostate Spec Ag 0.9 ng/mL; Percent Free Prostate Spec Ag 12 % (calc) (>25); Prostate Specific Ag Total 7.6 ng/mL (< OR = 4.0)
== END 2025-04-13 06:58 | disposition home or self-care (01) ==
LOC: HO.LAB 06:57
PROVIDERS: PCP Internal Medicine; Visit Provider Urology
DX: Z12.5 Encounter for screening for malignant neoplasm of prostate (principal); E11.69 Type 2 diabetes mellitus with other specified complication; N52.1 Erectile dysfunction due to diseases classified elsewhere
CPT/HCPCS: 36415; 84153; 84154

== ENCOUNTER → 2025-04-20 08:21 | Outpatient (BNV) | payer OTHER, SELFPAY | PROVIDERS: PCP Internal Medicine; Visit Provider Radiology Diagnostic Radiology | DX: R97.20 Elevated prostate specific antigen [PSA] (principal) | CPT/HCPCS: 72197 ==

== ENCOUNTER 2025-04-20 08:35 | Outpatient (REF) | payer OTHER, SELFPAY ==
--- NOTE | ~2025-04-20 | MR_ITS ---
EXAMINATION: MR PROSTATE WITHOUT THEN WITH IV CONTRAST HISTORY: R97.20 - Elevated prostate specific antigen [PSA] TECHNIQUE: 1.5T body coil survey of the pelvis was performed. Phase array coil imaging of the prostate was performed in multiplanar high resolution axial, coronal, sagittal fast spin echo T2 and axial T1 weighted imaging sequences. Axial diffusion imaging at intermediate and high field performed with ADC mapping. Next, 7.5 mL Gadavist was given by intravenous infusion, and dynamic axial imaging performed. COMPARISON: There are no prior studies available for comparison. CLINICAL DATA: Most recent PSA: 9.11 ng/mL on 04/13/2025. PSA Density: 0.15 ng/mL squared Prostate Biopsy: None reported. FINDINGS: Prostate size: 4.7 x 5.9 x 4.3 cm. Calculated prostate volume is 61.0 mL. Hemorrhage: None. Transitional Zone: There is moderate heterogeneous nodular hypertrophy of the transitional zone. Peripheral Zone: There are two areas of interest in the peripheral zone of the prostate as described below: Area of interest #1: Location: Right anterior peripheral zone in the mid gland (series 7, images 14-16) measuring approximately 1.3 x 0.6 cm. DWI PI-RADS v2.1 score: 3 T2 PI-RADS v2.1 score: 3 DCE PI-RADS v2.1 score: + Overall PI-RADS v2.1 score: 4 Capsular contact: yes Extracapsular extension: None Seminal vesicle invasion: None Neurovascular bundle involvement: None Area of interest #2: Location: Left posterolateral peripheral zone in the mid gland/apex (series 7, images 18-20) measuring approximately 10 mm in size. DWI PI-RADS v2.1 score: 3 T2 PI-RADS v2.1 score: 3 DCE PI-RADS v2.1 score: + Overall PI-RADS v2.1 score: 4 Capsular contact: yes Extracapsular extension: None Seminal vesicle invasion: None Neurovascular bundle involvement: None Seminal Vesicles/Ejaculatory Ducts: Symmetric and normal in signal and caliber. Pelvic Lymph Nodes: No obturator or internal iliac lymph nodes meeting size criteria for adenopathy. Marrow Signal: Normal marrow signal and enhancement without focal lesion identified. MR/MR Prostate wo/w con IMPRESSION: Areas of interest in the bilateral peripheral zones as described above, suspicious for clinically significant prostate carcinoma. PI-RADS 4: High (clinically significant cancer is likely to be present) PI-RADS Assessment Categories PI-RADS 1: Very low (clinically significant cancer is highly unlikely to be present) PI-RADS 2: Low (clinically significant cancer is unlikely to be present) PI-RADS 3: Intermediate (the presence of clinically significant cancer is equivocal) PI-RADS 4: High (clinically significant cancer is likely to be present) PI-RADS 5: Very high (clinically significant cancer is highly likely to be present) [employer]. MR Prostate Imaging Reporting and Data System version 2.1. [email or web address]/Quality-Safety/[email or web address]/ Electronically signed by: Tyler Simms MD 04/20/2025 09:59 AM EDT
--- OUTSIDE RECORDS SUMMARY | 2025-04-20 08:43 | XMS_ITS | Clinical Summary ---
Author Organization [facility] Address [address] [place] [address] Care Team Providers Care Political Anthropologist Name Role Phone Unavailable Primary Care Provider [...] Upcoming Encounters Date Type Department Care Team ([facility] st Contact Info) Description 04/27/2025 4:20 PM EDT Office Visit [facility] [address] [place] [phone] AntioneGretchen teresaKatie [address] [place] [address] Health Maintenance Due Date Last Done Comments Anxiety Screening 1974 Diabetes Screening 1974 Hepatitis C Screening 1974 Lipid Screening 1974 HIV Screening 1989 Imm-DTaP/Tdap/Td (1 - Tdap) 1993 Imm-Hepatitis B (1 of 3 - 19 + 3-dose series) 1993 CT Colonography 2019 Colonoscopy 2019 Colorectal Cancer Screening 2019 FIT/gFOBT 2019 Fecal DNA 2019 Flexible Sigmoidoscopy 2019 [id number] (1 - 2023- season) 2024 Imm-Pneumococcal 50+ (1 of 1 - PCV) 2024 Imm-Zoster, Recombinant (1 of 2) 2024 [...] EDT Caries of enamel (incipient) Defective dental rastafarian Full INTRAORAL - COMP SERIES OF RADIOGRAPHIC IMAGES Routine 05/10/2022 9:00 AM EDT Encounter for preoperative dental examination from Last 3 Months or Most Recently Relevant to Health Maintenance Insurance [facility] NITH[place] ORELLANA [phone]
== END 2025-04-20 08:36 | disposition home or self-care (01) ==
LOC: HO.MRI 08:35
PROVIDERS: PCP Internal Medicine; Visit Provider Urology
DX: R97.20 Elevated prostate specific antigen [PSA] (principal)
CPT/HCPCS: 72197; A9585

== ENCOUNTER 2025-05-03 12:43 | Outpatient (AMB) | payer OTHER, SELFPAY ==
--- NOTE | 2025-05-03 12:57 | A.OFFVIS_ITS ---
Intake Visit Reasons: 6m/MRI/PSA Intake Note: Patient is present for 6M/MRI/PSA Urology Medication:NONE Antibiotic Allergy:NONE Blood Thinner:NONE Promotional Marketing Analyst Required: No Allergies No Known Allergies (No Known Allergies*) Allergy (Verified 05/03/25 12:59) HPI Comments Details: Erasto is a pleasant male. He is a patient of Dr. Allen. He is seen for the following urologic conditions - elevated PSA Discussed MRI results PSA continues to rise Prostate biopsy to be performed Elevated PSA PSA - 05/13 4.6, 11/14 4.6 15%, 04/14 7.6 12% No family history of prostate cancer Bladder ultrasound 07/14 32 g prostate Prostate MRI 61 g prostate Right anterior peripheral zone 1.3 cm PI-RADS 4, left posterolateral peripheral zone 10 mm PI-RADS 4 Repeat PSA [facility] Medical History (Updated 11/19/24 @ 11:56 by Jairo Parham MD) S/P extracorporeal shock wave therapy Nephrolithiasis Elevated cholesterol HTN (hypertension) Social History Patient Tobacco Use Status: Never used Tobacco Second Hand Smoke Exposure: No Review of Systems Const Denies chills and Denies fever(s) Card Reports no additional complaints and Denies syncope Resp Denies cough GI Denies abdominal pain and Denies heartburn Reports as per HPI and Denies change in libido Neuro Denies syncope Psych Denies change in libido Endo Denies change in libido Physical Exam Const General: cooperative, healthy appearing, comfortable and no acute distress Orientation/consciousness: patient oriented x3 HEENT Face and sinus: Yes normal facial exam Mouth: moist mucous membranes Neck Neck: Yes normal visual inspection, Yes full ROM and Yes trachea midline Chest Chest palpation & inspection: normal inspection of the chest Resp Effort & Inspection: normal respiratory effort, able to speak in complete sentences and no respiratory distress GI Inspection: Yes normal to inspection Back/Spine/Pelvis Cervical Spine: normal cervical lordosis Thoracic/Lumbar Spine: thoracic and lumbar spine normal to inspection Skin General skin exam: no rashes or lesions noted Neuro General: patient oriented x3, gait normal, tone normal and moves all extremities Extrem General: Yes normal to inspection and Yes capillary refill normal Assessment & Plan Assessment & Plan (1) Elevated PSA: Code(s): R97.20 - Elevated prostate specific antigen [PSA] Category: Medical Plan Risks and benefits regarding trans rectal ultrasound with prostate biopsy were discussed. Options of continued surveillance, no treatment and biopsy were offered. The risks include but are not limited to, urinary tract infection, sepsis, difficulty urinating, bleeding into the rectum or bladder that requires intervention and transfusion,and failure to diagnose prostate cancer. The patient understands the options and the risks involved. They wish to procee d. Printed information was provided to ensure he remains off anticoagulation for the appropriate length of time. He may require cardiology or PCP clearance. An antibiotic will be administered prior to, and following the procedure Medications: New levofloxacin take 1 tablet day before procedure, 1 tablet day of procedure and 1 tablet day after procedure 500 mg PO DAILY 3 tabs 0RF 3 days R97.20 - Elevated prostate specific antigen [PSA] Patient Instructions: This note is constructed using voice recognition software. While every effort has been made to ensure accuracy statistical machine mechanic errors may have been included. Imaging studies, laboratory and physical exam results were discussed and reviewed in detail. No major barriers to patient understanding were identified. An opportunity to ask questions regarding the treatment plan was provided. All questions were answered. The patient expressed understanding and agreement with the above treatment plan. The patient is aware they should contact our office by phone for worsening of their current condition or the appearance of new urologic symptoms. Compliance is encouraged with any medications and followup testing that is ordered. It is a privilege to participate in the urologic care of your patient. If you have any questions or concerns regarding treatment for the above conditions, or other urologic issues, please do not hesitate to contact me. The office telephon e contact is [phone]. Sincerely, Dr Jairo Parham MD, [facility] - Urology Compassionate Specialist Care for the Genitourinary System Coding Level of Care Code Est Pt Level 4 (47717) Diagnoses Elevated PSA R97.20
--- OUTSIDE RECORDS SUMMARY | 2025-05-03 13:37 | XMS_ITS | Clinical Summary ---
Author Organization [facility] Address [address] [place] [address] Care Team Providers Care In Service Coordinator Name Role Phone Unavailable Primary Care Provider [...] Mass Index - - Plan of Treatment Health Maintenance Due Date Last Done Comments Anxiety Screening 1974 Diabetes Screening 1974 Hepatitis C Screening 1974 Lipid Screening 1974 HIV Screening 1989 Imm-DTaP/Tdap/Td (1 - Tdap) 1993 Imm-Hepatitis B (1 of 3 - 19 + 3-dose series) 1993 CT Colonography 2019 Colonoscopy 2019 Colorectal Cancer Screening 2019 FIT/gFOBT 2019 Fecal DNA 2019 Flexible Sigmoidoscopy 2019 [id number]-60 (1 - 2023- season) 2024 Imm-Pneumococcal 50+ (1 of 1 - PCV) 2024 Imm-Zoster, Recombinant (1 of 2) 2024 Alcohol and Drug Screen 10/21/2024 Depression Annual Screen 10/21/2024 Imm-Influenza (#1) 2025 Dental BW 09/24/2025 09/22/2024, 05/0 12/2023, [...] EDT Caries of enamel (incipient) Defective dental caodaism Full INTRAORAL - COMP SERIES OF RADIOGRAPHIC IMAGES Routine 05/10/2022 9:00 AM EDT Encounter for preoperative dental examination from Last 3 Months or Most Recently Relevant to Health Maintenance Insurance [facility] NITHYA ORELL[place] [phone]
== END 2025-05-03 13:33 | disposition home or self-care (01) ==
LOC: HO.HUSH 12:44
PROVIDERS: PCP Internal Medicine; Visit Provider Urology
DX: R97.20 Elevated prostate specific antigen [PSA] (principal)
CPT/HCPCS: 99214

== ENCOUNTER 2025-05-07 06:52 | Outpatient (REF) | payer OTHER, SELFPAY ==
[2025-05-07 07:42] LABS: Alanine Aminotransferase 43 U/L (0-40); Albumin Level 4.9 g/dL (3.5-5.0); Alkaline Phosphatase 64 U/L (39-117); Anion Gap 12 (12-20); Aspartate Amino Transferase 39 U/L (5-37); Blood Urea Nitrogen 18 mg/dL (9-16); Calcium 9.6 mg/dL (8.4-10.2); Carbon Dioxide 26 mmol/L (22-29); Chloride 107 mmol/L (96-108); Cholesterol 161 mg/dL (<200); Estimated Glomerular Filt Rate > 60; HDL Cholesterol 39 mg/dL (>40); Potassium 4.0 mmol/L (3.3-5.1); Sodium 141 mmol/L (135-145); Total Protein 7.5 g/dL (6.5-8.0); Triglycerides 105 mg/dL (<150)
== END 2025-05-07 06:53 | disposition home or self-care (01) ==
LOC: HO.LAB 06:52
PROVIDERS: PCP Internal Medicine; Visit Provider Internal Medicine
DX: I10 Essential (primary) hypertension (principal); E78.00 Pure hypercholesterolemia, unspecified; R74.01 Elevation of levels of liver transaminase levels; R97.20 Elevated prostate specific antigen [PSA]
CPT/HCPCS: 36415; 80053; 80061

== ENCOUNTER 2025-06-15 07:47 | Outpatient (REF) | payer OTHER, SELFPAY ==
[2025-06-15] MEDS: Lidocaine HCl 1 % MPF 5 ML VIAL 10 ML SUBCUT (08:49)
--- NOTE | 2025-06-16 13:11 | W.PM.OPN ---
Operative Note Operative Note Date of Service: 06/16/25 Narrative: Preoperative diagnosis: Elevated PSA Postoperative diagnosis: Elevated PSA Procedure: 1. transrectal ultrasound measurement of prostate 2. transrectal ultrasound-guided pudendal nerve block 3. transrectal ultrasound-guided prostate biopsy 12 core Surgeon: Dr. Jairo Parham Anesthetic: 10cc 1% lidocaine Indications for procedure: Elevated PSA 9.1 Counselling: Technical aspects, risks and benefits of proposed procedure were discussed in full. All questions have been answered, written consent has been obtained and patient agrees to proceed. Procedure: The patient was brought into the procedure area and placed in a left lateral decubitus position. Patient identity confirmed. Perioperative antibiotics confirmed. Safety pause time out performed. ISAAC was performed to dilate rectal sphincter Iodine 10cc with 60 cc gel was placed per rectum to reduce infection risk using a catheter tip syringe. 8 Hz Alanis rectal end-fire ultrasound probe was placed transrectally without difficulty. The prostate was visualized. Seminal vesicles were normal. Prostate margins were clearly demarcated. Bladder was seen superiorly. No cystic structures were noted No calcifications were noted at the surgical margin The prostate was otherwise heterogenous in nature. There was a 1 cm nodular type area on the patient's right side. This is suspicious for prostate cancer. The prostate was measured in 3 dimensions Prostatic Width: 5.5 cm Prostatic Height: 4.1 cm Urethral Length: 5.1 cm Total volume equals : 60 ml An ultrasound-guided pudendal nerve block was performed using a 22 gauge spinal needle in the sagittal plane. 4 cc of 1% lidocaine placed at the junction of each seminal vesicle and 2 cc placed at the apex of the prostate. A 12 core biopsy was performed with 6 cores each side using an 18 gauge prostate biopsy gun. Two cores each were taken at the prostate apex, mid and base on each side. Cores were spaced between lateral and medial aspects. Each core was examined as placed on specimen foam as part of principal quality engineer to ensure a minimum 1 cm of length and minimal discontinuity. He tolerated the procedure well with minimal rectal bleeding. Blood pressure remained stable following procedure. He was able to ambulate to bathroom after 5 minutes. Printed instructions regarding antibiotic use and common adverse events from the procedure such as low-grade temperature, potential infection and bleeding were given. He understands to call the office or go to an emergency room should any of these events arise. Pathology: 12 core prostate biopsy. CPT code 45984: Transrectal ultrasound; this is a diagnostic test for evaluation of the prostate and surrounding structures, looking for abnormalities or suspicious areas worrisome for cancer CPT code 09802: Biopsy, prostate; needle or punch, single or multiple, any approach CPT code 56023: Ultrasonic guidance for needle placement (eg, biopsy, aspiration, injection, localization device), imaging supervision and interpretation
== END 2025-06-15 07:48 | disposition home or self-care (01) ==
LOC: HO.US 07:47
PROVIDERS: PCP Internal Medicine; Visit Provider Urology
DX: R97.20 Elevated prostate specific antigen [PSA] (principal)
CPT/HCPCS: 55700; 76942; 88305; 88344; J2003

== ENCOUNTER → 2025-06-15 07:47 | Outpatient (BNV) | payer OTHER, SELFPAY | PROVIDERS: PCP Internal Medicine; Visit Provider Urology | DX: R97.20 Elevated prostate specific antigen [PSA] (principal) | CPT/HCPCS: 55700; 76872; 76942 ==

== ENCOUNTER 2025-06-29 14:19 | Outpatient (AMB) | payer OTHER, SELFPAY ==
--- NOTE | 2025-06-29 14:19 | A.OFFVIS_ITS ---
Intake Visit Reasons: Prostate biopsy results Intake Note: Patient is present for TELEHEALTH Urology Medication:NONE Antibiotic Allergy:NONE Blood Thinner:NONE Embroidery Designer Required: No Accompanied by: Self / Same As Patient Allergies No Known Allergies (No Known Allergies*) Allergy (Verified 06/29/25 14:19) HPI Comments Details: Erasto is a pleasant male. He is a patient of Dr. Allen. He is seen for the following urologic conditions - elevated PSA Telemedicine Evaluation 15 min Consultation [employer] Video Discussed biopsy results Negative all 12 cores We will continue surveillance for elevated PSA Elevated PSA PSA - 05/13 4.6, 11/14 4.6 15%, 04/14 7.6 12% No family history of prostate cancer Bladder ultrasound 07/14 32 g prostate Prostate MRI 61 g prostate - Right anterior peripheral zone 1.3 cm PI-RADS 4, left posterolateral peripheral zone 10 mm PI-RADS 4 Prostate Biopsy - 06/14 [facility] Medical History (Updated 11/19/24 @ 11:56 by Jairo Parham MD) S/P extracorporeal shock wave therapy Nephrolithiasis Elevated cholesterol HTN (hypertension) Social History Patient Tobacco Use Status: Never used Tobacco Second Hand Smoke Exposure: No Review of Systems Const Denies chills and Denies fever(s) Card Reports no additional complaints and Denies syncope Resp Denies cough GI Denies abdominal pain and Denies heartburn Reports as per HPI and Denies change in libido Neuro Denies syncope Psych Denies change in libido Endo Denies change in libido Physical Exam Const General: cooperative, healthy appearing, comfortable and no acute distress Orientation/consciousness: patient oriented x3 HEENT Face and sinus: Yes normal facial exam Mouth: moist mucous membranes Neck Neck: Yes normal visual inspection, Yes full ROM and Yes trachea midline Chest Chest palpation & inspection: normal inspection of the chest Resp Effort & Inspection: normal respiratory effort, able to speak in complete sentences and no respiratory distress GI Inspection: Yes normal to inspection Back/Spine/Pelvis Cervical Spine: normal cervical lordosis Thoracic/Lumbar Spine: thoracic and lumbar spine normal to inspection Skin General skin exam: no rashes or lesions noted Neuro General: patient oriented x3, gait normal, tone normal and moves all extremities Extrem General: Yes normal to inspection and Yes capillary refill normal Telehealth Telehealth Telehealth Platform: [facility] Location of provider rendering services: practice address Location of patient: address on file Patient Identification confirmed using: Name, : Yes Telehealth method: video Patient verbally consented to treatment: Yes Patient verbally consented to billing insurance company: Yes Patient informed of any privacy concerns related to visit: Yes Minutes spent on Phone/Video with Pt.: 15 Assessment & Plan Assessment & Plan (1) Elevated PSA: Code(s): R97.20 - Elevated prostate specific antigen [PSA] Category: Medical Plan Six-month follow-up PSA Orders: Orders PSA,Total (Free>4and<10) 6 Months R97.20 - Elevated prostate specific antigen [PSA] Patient Instructions: This note is constructed using voice recognition software. While every effort has been made to ensure accuracy express manager errors may have been included. Imaging studies, laboratory and physical exam results were discussed and reviewed in detail. No major barriers to patient understanding were identified. An opportunity to ask questions regarding the treatment plan was provided. All questions were answered. The patient expressed understanding and agreement with the above treatment plan. The patient is aware they should contact our office by phone for worsening of their current condition or the appearance of new urologic symptoms. Compliance is encouraged with any medications and followup testing that is ordered. It is a privilege to participate in the urologic care of your patient. If you have any questions or concerns regarding treatment for the above conditions, or other urologic issues, please do not hesitate to contact me. The office telephone contact is [phone]. Sincerely, Dr Jairo Parham MD, [facility] - Urology Compassionate Specialist Care for the Genitourinary System Coding Level of Care Code Tele Est Pt Level 3 (86060) Diagnoses Elevated PSA R97.20
== END 2025-06-29 16:30 | disposition home or self-care (01) ==
LOC: HO.HUSH 14:19
PROVIDERS: PCP Internal Medicine; Visit Provider Urology
DX: R97.20 Elevated prostate specific antigen [PSA] (principal)
CPT/HCPCS: 99213